=== PATIENT | female | born 1960 | race Caucasian/White ===

== ENCOUNTER → 2024-10-03 | Outpatient (REF) | payer MEDICARE ==
[~2024-10-03] MED LIST: IOPAMIDOL 370 MG/ML 100 ML INFUS..BTL INJ ONE
[2024-10-03 14:39] LABS: EST GLOMERULAR FILTRATION RATE 84.0 ML/MIN (>=60)
== END ==
LOC: CT 13:37
PROVIDERS: ATTEND Family Medicine
DX: R10.84 Generalized abdominal pain (principal); R63.4 Abnormal weight loss
CPT/HCPCS: 36415; 74177; 82565; 84520; Q9967